=== PATIENT | female | born 1960 | race Caucasian/White ===

== ENCOUNTER → 2019-04-21 09:48 | Outpatient (CLI) | payer SELFPAY ==
--- NOTE | 2019-04-21 | DI.RAD.S_ITS ---
PROCEDURE: XR CERVICAL SPINE 4V OR 5V INDICATIONS: RADICULOPATHY CERVICAL REGION/M54.12 TECHNIQUE: 5 views of the cervical spine acquired. COMPARISON: None. FINDINGS: Bones: No fractures or dislocations to the T1 level. Oblique images demonstrate moderate bilateral C5-6 and C6-7 bony foraminal stenoses. The degenerative disc disease along the cervical spine is minimal to the C5-6 level where it is moderately severe and also moderately severe at C6-7. It is mildly again at C7-T1. Soft tissues: No prevertebral soft tissue swelling. IMPRESSION: No trauma found. Mid and lower cervical degenerative disc disease and facet osteoarthritis to the degree that significant spinal and foraminal stenosis would be expected from C5 inferiorly. Dictated by: Geovanni Perez M.D. on 04/21/2019 at 13:41 Approved by: Geovanni Perez M.D. on 04/21/2019 at 13:42
== END ==
PROVIDERS: PCP Family Medicine; Referring Provider Family Medicine; Visit Provider Family Medicine
DX: M50.122 Cervical disc disorder at C5-C6 level with radiculopathy (principal); M47.22 Other spondylosis with radiculopathy, cervical region; M48.02 Spinal stenosis, cervical region
CPT/HCPCS: 72050